=== PATIENT | male | born 1945 | race Caucasian/White ===

== ENCOUNTER 2023-09-09 10:52 | Outpatient (CLI) | payer MEDICARE, BC | END 2023-09-09 10:53 | disposition home or self-care (01) | LOC: CSHWCC 10:52 | PROVIDERS: ATTEND Physician Assistant | DX: L97.213 Non-pressure chronic ulcer of right calf with necrosis of muscle (principal) | CPT/HCPCS: 11043; G0463; 99213 ==

== ENCOUNTER 2023-09-14 15:34 | Outpatient (CLI) | payer MEDICARE, BC | END 2023-09-14 15:35 | disposition home or self-care (01) | LOC: CSHWCC 15:34 | PROVIDERS: ATTEND Nurse Practitioner Family | DX: L97.213 Non-pressure chronic ulcer of right calf with necrosis of muscle (principal) | CPT/HCPCS: 11042 ==

== ENCOUNTER 2023-09-23 14:32 | Outpatient (CLI) | payer MEDICARE, BC | END 2023-09-23 14:33 | disposition home or self-care (01) | LOC: CSHWCC 14:32 | PROVIDERS: ATTEND Nurse Practitioner Family | DX: L97.213 Non-pressure chronic ulcer of right calf with necrosis of muscle (principal) | CPT/HCPCS: 11042 ==

== ENCOUNTER 2023-09-30 13:28 | Outpatient (CLI) | payer MEDICARE, BC | END 2023-09-30 13:29 | disposition home or self-care (01) | LOC: CSHWCC 13:28 | PROVIDERS: ATTEND Nurse Practitioner Family | DX: I87.312 Chronic venous hypertension (idiopathic) with ulcer of left lower extremity (principal); L97.213 Non-pressure chronic ulcer of right calf with necrosis of muscle | CPT/HCPCS: 11042 ==

== ENCOUNTER 2023-10-08 15:48 | Outpatient (CLI) | payer MEDICARE, BC | END 2023-10-08 15:49 | disposition home or self-care (01) | LOC: CSHWCC 15:48 | PROVIDERS: ATTEND Nurse Practitioner Family | DX: I87.312 Chronic venous hypertension (idiopathic) with ulcer of left lower extremity (principal); L97.929 Non-pressure chronic ulcer of unspecified part of left lower leg with unspecified severity; L97.213 Non-pressure chronic ulcer of right calf with necrosis of muscle | CPT/HCPCS: 11042 ==

== ENCOUNTER 2023-10-15 15:58 | Outpatient (CLI) | payer MEDICARE, BC | END 2023-10-15 15:59 | disposition home or self-care (01) | LOC: CSHWCC 15:58 | PROVIDERS: ATTEND Nurse Practitioner Family | DX: I87.312 Chronic venous hypertension (idiopathic) with ulcer of left lower extremity (principal); L97.213 Non-pressure chronic ulcer of right calf with necrosis of muscle | CPT/HCPCS: 11042 ==

== ENCOUNTER 2023-11-04 17:12 | Outpatient (CLI) | payer MEDICARE, BC | END 2023-11-04 17:13 | disposition home or self-care (01) | LOC: CSHWCC 17:12 | PROVIDERS: ATTEND Nurse Practitioner Family | DX: L97.213 Non-pressure chronic ulcer of right calf with necrosis of muscle (principal); I87.312 Chronic venous hypertension (idiopathic) with ulcer of left lower extremity | CPT/HCPCS: 11042 ==

== ENCOUNTER 2024-02-04 13:19 | Outpatient (CLI) | payer MEDICARE, BC | END 2024-02-04 13:20 | disposition home or self-care (01) | LOC: CSHWCC 13:19 | PROVIDERS: ATTEND Nurse Practitioner Family | DX: S81.812D Laceration without foreign body, left lower leg, subsequent encounter (principal); S80.811D Abrasion, right lower leg, subsequent encounter; M06.9 Rheumatoid arthritis, unspecified; E11.622 Type 2 diabetes mellitus with other skin ulcer; L98.499 Non-pressure chronic ulcer of skin of other sites with unspecified severity | CPT/HCPCS: 11042; 97597; G0463; 99213 ==

== ENCOUNTER 2025-08-08 08:51 | Outpatient (CLI) | payer MEDICARE, BC | END 2025-08-08 08:52 | disposition home or self-care (01) | LOC: CSHWCC 08:51 | PROVIDERS: ATTEND Nurse Practitioner Family | DX: I87.332 Chronic venous hypertension (idiopathic) with ulcer and inflammation of left lower extremity (principal); E11.621 Type 2 diabetes mellitus with foot ulcer; L97.522 Non-pressure chronic ulcer of other part of left foot with fat layer exposed; L97.322 Non-pressure chronic ulcer of left ankle with fat layer exposed; M06.9 Rheumatoid arthritis, unspecified | CPT/HCPCS: 97597; G0463; 99215 ==